=== PATIENT | male | born 2000 | race Caucasian/White ===

== ENCOUNTER 2020-06-10 15:48 | Emergency (ER) | payer OTHER ==
[~2020-06-10] VITALS: Ht 170.2 cm; Wt 72.6 kg
[2020-06-10 16:05] VITALS: BP 141/91
[2020-06-10 16:08] VITALS: BP 141/91
--- NOTE | 2020-06-10 16:10 | NUR ---
see complete assessment.
--- NOTE | 2020-06-10 16:10 | NUR ---
triaged and left in triage room.
--- NOTE | 2020-06-10 18:28 | NUR ---
pt eloped without discharge paperwork. JASPER Chen made aware.
== END 2020-06-10 18:28 | disposition left against medical advice (07) ==
LOC: MED 15:48
DX: F41.9 Anxiety disorder, unspecified (principal); R03.0 Elevated blood-pressure reading, without diagnosis of hypertension
CPT/HCPCS: 99283